=== PATIENT | male | born 1955 | race Caucasian/White ===

== ENCOUNTER 2019-03-01 11:14 | Emergency (ER) | payer MEDICARE, OTHER ==
[~2019-03-01] VITALS: Ht 182.9 cm; Wt 110.0 kg
[~2019-03-01 11:14] MED LIST: AMOXICILLIN 8751 TAB PO; CIPRO 500MG TA500 MG PO; CONSTULOSE 20G/30ML PO; PERCR 7.5 PO; PRAVACHOL 40MG40 MG PO; PREDNISONE20 MG PO; PRINIVIL10 MG PO; PRINZIDE 12.5 M1 TA1 PO; PROAIR HFA0.09 MG/AC IH; PROVENTIL0.09 MG/A1 IH
[2019-03-01 11:18] VITALS: TEMP 99
[2019-03-01 11:46] LABS: BASO # 0.1 (0.0-0.2); BASO % 0.8 % (0.0-2.0); EOS # 0.8 (0.0-0.7); EOS % 10.6 % (0-4.0); GRAN # 3.7 (1.4-6.5); GRAN % 47.5 % (42.2-75.2); HEMATOCRIT 37.9 % (42.0-52.0); HEMOGLOBIN 12.9 g/dl (13.5-18.0); LYMPH # 2.4 (1.2-3.4); LYMPH % 31.5 % (20.0-51.0); MEAN CELL VOLUME 87 fl (80.0-100.0); MEAN CORPUSCULAR HEMOGLOBIN 30 pg (27.0-31.0); MEAN CORPUSCULAR HGB CONC 34 g/dl (33.0-37.0); MONO # 0.7 (0.1-0.6); MONO % 9.2 % (1.7-9.3); PLATELET COUNT 285 K/mm3 (130-400); RED BLOOD COUNT 4.35 M/mm3 (4.20-5.60); REDCELL DISTRIBUTION WIDTH-CV 13.1 % (11.5-14.5)
[2019-03-01 11:58] LABS: BILIRUBIN,TOTAL 0.6 mg/dL (0.0-1.0); C-REACTIVE PROTEIN 1.7 mg/dL (0.0-0.9); CALCIUM 9.3 mg/dL (8.4-10.2); CREATININE, serum 0.86 (0.66-1.25); POTASSIUM 3.7 mmol/L (3.4-5.0); TOTAL PROTEIN 7.6 gm/dL (6.4-8.2)
[2019-03-01 12:08] LABS: ERYTHROCYTE SEDIMENTATION RATE 11 mm/hr (0-30)
[2019-03-01] MEDS ORDERED: PREDNISONE20 MG PO (12:19)
[2019-03-01] MEDS ORDERED: DOXYCYCLINE 10100 MG PO (12:19)
[2019-03-01 12:35] VITALS: BP 136/70; PULSE 64
== END 2019-03-01 12:40 | disposition home or self-care (01) ==
LOC: COL.ER 11:14
PROVIDERS: Family Medicine
DX: L03.116 Cellulitis of left lower limb (principal); L03.115 Cellulitis of right lower limb
CPT/HCPCS: J7512

== ENCOUNTER 2019-12-04 15:05 | Emergency (ER) | payer MEDICARE, OTHER ==
[~2019-12-04] VITALS: Ht 182.9 cm; Wt 109.1 kg
[~2019-12-04 15:05] MED LIST changes: +DOXYCYCLINE 10100 MG PO
[2019-12-04 15:46] VITALS: BP 170/79
[2019-12-04] MEDS ORDERED: LIDODERM 5% PATC1 EA TP (17:17)
[2019-12-04] MEDS ORDERED: FLEXERIL 1010 MG/TAB PO (17:17)
[2019-12-04 19:15] VITALS: PULSE 62; TEMP 98.1
== END 2019-12-04 19:20 | disposition home or self-care (01) ==
LOC: COL.ER 15:05
DX: M54.41 Lumbago with sciatica, right side (principal); J44.9 Chronic obstructive pulmonary disease, unspecified; I10 Essential (primary) hypertension; F17.210 Nicotine dependence, cigarettes, uncomplicated
CPT/HCPCS: J1170; J1885; J2405

== ENCOUNTER 2022-06-04 10:44 | Emergency (ER) | payer MEDICARE, OTHER ==
[~2022-06-04] VITALS: Ht 182.9 cm; Wt 104.5 kg
[~2022-06-04 10:44] MED LIST changes: +FLEXERIL 1010 MG/TAB PO; +LIDODERM 5% PATC1 EA TP
[2022-06-04 11:31] VITALS: BP 128/81; TEMP 97.8
[2022-06-04 12:34] VITALS: PULSE 56
== END 2022-06-04 12:18 | disposition home or self-care (01) ==
LOC: COL.ER 10:44
DX: S63.502A Unspecified sprain of left wrist, initial encounter (principal); F17.210 Nicotine dependence, cigarettes, uncomplicated; W01.0XXA Fall on same level from slipping, tripping and stumbling without subsequent striking against object, initial encounter; Y92.59 Other trade areas as the place of occurrence of the external cause

== ENCOUNTER 2023-02-06 10:03 | Emergency (ER) | payer MEDICARE, OTHER ==
[~2023-02-06] VITALS: Ht 182.9 cm; Wt 106.8 kg
[2023-02-06 10:07] VITALS: TEMP 97.7
[2023-02-06 10:35] LABS: BASO # 0.1 K/mm3 (0.0-0.2); BASO % 0.9 % (0.0-2.0); EOS # 0.6 K/mm3 (0.0-0.7); EOS % 6.7 % (0.0-4.0); GRAN # 5.1 K/mm3 (1.4-6.5); GRAN % 58.7 % (42.2-75.2); HEMATOCRIT 38.8 % (42.0-52.0); HEMOGLOBIN 13.2 g/dl (13.5-18.0); LYMPH # 2.1 K/mm3 (1.2-3.4); LYMPH % 23.4 % (20.0-51.0); MEAN CELL VOLUME 90 fl (80.0-100.0); MEAN CORPUSCULAR HEMOGLOBIN 31 pg (27-31); MEAN CORPUSCULAR HGB CONC 34 g/dl (33.0-37.0); MEAN PLATELET VOLUME 9.4 fl (7.4-10.4); MONO # 0.9 K/mm3 (0.1-0.6); MONO % 9.8 % (1.7-9.3); PLATELET COUNT 273 K/mm3 (130-400); RED BLOOD COUNT 4.32 M/mm3 (4.20-5.60); REDCELL DISTRIBUTION WIDTH-CV 13.1 % (11.5-14.5)
[2023-02-06 10:59] LABS: ALBUMIN 3.6 gm/dL (3.4-4.8); BILIRUBIN,TOTAL 0.7 mg/dL (0.2-1.2); C-REACTIVE PROTEIN 1.23 mg/dL (0.00-0.50); CALCIUM 9.4 mg/dL (8.4-10.2); CREATININE, serum 0.84 mg/dL (0.72-1.25); POTASSIUM 3.5 mmol/L (3.5-4.5)
[2023-02-06] MEDS ORDERED: DURICEF 500MG500 MG PO (11:13)
[2023-02-06 11:27] VITALS: BP 160/78; PULSE 76
== END 2023-02-06 11:27 | disposition home or self-care (01) ==
LOC: COL.ER 10:03
PROVIDERS: Physician Assistant
DX: L03.115 Cellulitis of right lower limb (principal); L03.116 Cellulitis of left lower limb; R79.82 Elevated C-reactive protein (CRP); F17.210 Nicotine dependence, cigarettes, uncomplicated
CPT/HCPCS: J0696

== ENCOUNTER 2024-07-16 11:34 | Emergency (ER) | payer OTHER ==
[~2024-07-16] VITALS: Ht 182.9 cm; Wt 102.3 kg
[~2024-07-16 11:34] MED LIST changes: +COMBIRESP IH; +DURICEF 500MG500 MG PO; +IPRATROPIUM BROM3 M1 IH
[2024-07-16 11:55] VITALS: TEMP 98.1
[2024-07-16 13:28] VITALS: BP 223/95; PULSE 50
== END 2024-07-16 13:30 | disposition home or self-care (01) ==
LOC: COL.ER 11:34
DX: S62.002A Unspecified fracture of navicular [scaphoid] bone of left wrist, initial encounter for closed fracture (principal); W01.0XXA Fall on same level from slipping, tripping and stumbling without subsequent striking against object, initial encounter

== ENCOUNTER 2024-07-16 17:30 | Emergency (ER) | payer OTHER ==
[~2024-07-16] VITALS: Ht 182.9 cm; Wt 102.3 kg
[2024-07-16 17:44] VITALS: TEMP 97.9
[2024-07-16] MEDS ORDERED: hydrALAZINE 20 MG/ML 1 ML VIAL IV ONE (18:30)
[2024-07-16 18:58] LABS: BASO # 0.1 K/mm3 (0.0-0.2); BASO % 0.5 % (0.0-2.0); EOS # 0.5 K/mm3 (0.0-0.7); EOS % 3.4 % (0.0-4.0); GRAN # 11.3 K/mm3 (1.4-6.5); GRAN % 75.5 % (42.2-75.2); HEMOGLOBIN 14.7 g/dl (13.5-18.0); LYMPH # 2.1 K/mm3 (1.2-3.4); LYMPH % 13.9 % (20.0-51.0); MEAN CELL VOLUME 87 fl (80.0-100.0); MEAN CORPUSCULAR HEMOGLOBIN 29 pg (27-31); MEAN CORPUSCULAR HGB CONC 33 g/dl (33.0-37.0); MONO % 6.4 % (1.7-9.3); PLATELET COUNT 258 K/mm3 (130-400); RED BLOOD COUNT 5.05 M/mm3 (4.20-5.60); REDCELL DISTRIBUTION WIDTH-CV 13.2 % (11.5-14.5)
[2024-07-16 19:19] LABS: ALANINE AMINOTRANSFERASE 18 U/L (0-55); ALBUMIN 4.1 g/dL (3.4-4.8); ALKALINE PHOSPHATASE 76 U/L (40-150); ANION GAP 11 mmol/L (7-16); AST,SGOT 18 U/L (5-34); BILIRUBIN,TOTAL 1.1 mg/dL (0.2-1.2); BLOOD UREA NITROGEN 14 mg/dL (8-26); CALCIUM 9.5 mg/dL (8.4-10.2); CHLORIDE 96 mEq/L (98-107); GLUCOSE 116 mg/dL (70-99); POTASSIUM 3.7 mEq/L (3.5-4.5); SODIUM 135 mEq/L (136-145); TOTAL PROTEIN 7.9 g/dl (6.2-8.1)
[2024-07-16 19:27] LABS: TROPONIN-I < 0.010 ng/mL (0.00-0.033)
[2024-07-16] MEDS ORDERED: LORazepam 2 MG/ML 1 ML VIAL IV ONE (19:30)
[2024-07-16] MEDS ORDERED: amLODIPine 10 MG TAB PO ONE (20:45)
[2024-07-16] MEDS ORDERED: Lisinopril 20 MG,hydroCHLOROthiazide 12.5 MG PO ONE (20:45)
[2024-07-16] MEDS ORDERED: Metoprolol Tartrate 5 MG/5 ML VIAL IV ONE (21:30)
[2024-07-16 22:38] VITALS: BP 181/98; PULSE 55
== END 2024-07-16 22:40 | disposition home or self-care (01) ==
LOC: COL.ER 17:30
PROVIDERS: Nurse Practitioner Primary Care
DX: I10 Essential (primary) hypertension (principal)
CPT/HCPCS: J0360; J1920; J2060